=== PATIENT | female | born 1995 | race Caucasian/White ===

== ENCOUNTER → 2016-09-10 | Outpatient (REF) | payer OTHER ==
[~2016-09-10] MED LIST: PRIL40CA PO; RISP0.5T3 PO; TRAZ50TA2 PO; VALA1TAB PO; VALT1TAB PO; ZOLO50TA PO
== END ==
LOC: M LAB REF 12:15
PROVIDERS: ATTEND Advanced Practice Midwife
DX: R30.0 Dysuria (principal)

== ENCOUNTER → 2016-10-07 | Outpatient (CLI) | payer OTHER ==
[2016-10-07 13:25] LABS: BASO % 0.1 % (0.0-1.0); EOS % 0.4 % (0.0-3.0); LARGE UNSTAINED CELL # 0.1 K/mm3 (0.0-0.4); LARGE UNSTAINED CELL % 1.3 % (0.0-4.0); LYMPH # 1.5 K/mm3 (1.5-6.5); LYMPH % 13.3 % (24.0-44.0); MEAN CORPUSCULAR HEMOGLOBIN 32.3 pg (27.0-33.0); MONO # 0.4 K/mm3 (0.0-0.8); MONO % 3.7 % (0.0-5.0); NEUTROPHILS # 8.2 K/mm3 (1.8-7.7); NEUTROPHILS % 81.2 % (36.0-66.0); PLATELET COUNT, AUTOMATED 148 k/mm3 (150-450); RED CELL DISTRIBUTION WIDTH 13.2 % (11.5-14.5); WHITE BLOOD COUNT 10.1 K/mm3 (4.0-10.0)
== END ==
LOC: M SMT 10:06
PROVIDERS: ATTEND Advanced Practice Midwife
DX: Z34.83 Encounter for supervision of other normal pregnancy, third trimester (principal)

== ENCOUNTER → 2016-12-09 | Outpatient (REF) | payer OTHER | LOC: M LAB REF 17:23 | PROVIDERS: ATTEND Obstetrics & Gynecology | DX: Z34.83 Encounter for supervision of other normal pregnancy, third trimester (principal) ==

== ENCOUNTER → 2016-12-09 | Outpatient (CLI) | payer OTHER ==
--- NOTE | 2016-12-09 17:48 | REP ---
OB ULTRASOUND: Real-time sonographic evaluation of the gravid uterus is performed. Comparison is made with prior study of 08/05/2016. There is a single living intrauterine gestation with estimated gestational age is 37 weeks 4 days based on the LMP with EDC 12/26/2016. Today's measurements indicate somewhat less than expected growth. BPD 79 mm = 31 weeks 5 days, less than 5th percentile. HC 306 mm = 34 weeks 0 days, less than 5th percentile. AC 326 mm = 36 weeks 4 days, 34th percentile. Femur length 69 mm = 35 weeks 2 days, 16th percentile. HC/AC ratio 0.94 within normal range. Estimated weight 2665 grams 21st percentile. Cervix is closed measures 3.2 cm in length. heart rate 144 beats per minute. Amniotic fluid appears within normal limits. BETZAIDA 14.6 within normal range of 7.4-24.1. SD ratio 2.32 within normal range of 1.6-2.6. RI 0.57 is slightly below normal range of 0.59 to 0.75. Choroid plexus is homogenous and unremarkable. The upper lip, four chamber heart, stomach, three vessel cord, kidneys, and bladder are visualized and are grossly unremarkable. head demonstrates a somewhat lemon shape with a slight indentation of the frontal bones. This has been associated with several anomalies but the sign itself is nonspecific. There are no anomalies on the anatomy screening ultrasound of 08/05/2016. position is vertex. Placenta is anterior and grade 1 with no previa or abruption. IMPRESSION: Somewhat less than expected growth as discussed in detail above, although the estimated weight is at the 21st percentile. Signed by Garth Chandler MD 12/09/2016 07:50 P
== END ==
LOC: M RAD 16:01
PROVIDERS: ATTEND Obstetrics & Gynecology
DX: Z36 Encounter for antenatal screening of mother (principal)

== ENCOUNTER 2016-12-18 22:25 | Inpatient (IN) | payer OTHER ==
[~2016-12-18] VITALS: Ht 154.9 cm; Wt 78.0 kg
[2016-12-18 22:39] VITALS: BP 135/75
[2016-12-18] MEDS ORDERED: LR 1,000 ML IV SCH (22:52)
[2016-12-18] MEDS ORDERED: LACTATED RINGER'S 1000 ML IV STA (22:52)
[2016-12-18] MEDS ORDERED: VALT500T PO (23:09)
[2016-12-18] MEDS ORDERED: PRENTAB9 PO (23:09)
[2016-12-18] MEDS ORDERED: ZOLO50TA PO (23:09)
[2016-12-18] MEDS ORDERED: ACET50TA PO (23:09)
[2016-12-18 23:59] LABS: MEAN CORPUSCULAR HEMOGLOBIN 34.3 pg (27.0-33.0); MEAN CORPUSCULAR HGB CONC 35.9 g/dl (32.0-36.5); MEAN CORPUSCULAR VOLUME 95.4 fl (80.0-96.0); RED CELL DISTRIBUTION WIDTH 13.6 % (11.5-14.5); WHITE BLOOD COUNT 12.7 K/mm3 (4.0-10.0)
[2016-12-19] VITALS (42 sets, daily range): BP systolic 108–168; BP diastolic 56–83
[2016-12-19] MEDS ORDERED: FENTANYL 2MCG/ML ROPIVACAINE 0.2% IN 0.9% NACL 200ML IVBAG As Ordered ONE (00:27)
[2016-12-19] MEDS ORDERED: NALOXONE INJ 0.4 MG/1 ML VIAL (J2310) IV PRN (01:15)
[2016-12-19] MEDS ORDERED: ePHEDrine SULFATE 25 MG/5 ML(5MG/ML) SYRINGE IV PRN (01:15)
[2016-12-19] MEDS ORDERED: LACTATED RINGER'S 1000 ML IV PRN (01:15)
[2016-12-19] MEDS ORDERED: REFRIGERATOR IV KEYS XX PRN (01:15)
[2016-12-19] MEDS ORDERED: EPIDURAL COMMENT XX SCH (01:15)
[2016-12-19] MEDS ORDERED: ONDANSETRON 4MG/2ML VIAL (J2405) IV PRN (01:15)
[2016-12-19] MEDS ORDERED: diphenhydrAMINE INJ 50MG/ML VIAL (J1200) IV PRN (01:15)
[2016-12-19] MEDS ORDERED: EPIDURAL/PCA KEYS XX PRN (01:15)
[2016-12-19] MEDS ORDERED: FENTANYL/ROPIVACAINE/NACL BAG 200 ML EPIDURAL SCH (01:15)
[2016-12-19] MEDS ORDERED: OXYTOCIN 30 UNITS IN 0.9% NaCl 500ML IV BAG (J2590) As Ordered ONE (04:30)
[2016-12-19] MEDS ORDERED: OXYTOCIN DRIP 30 UNITS in APPROPRIATE DILUENT 1 EA IV SCH (05:20)
[2016-12-19 05:27] LABS: CORD GAS ABE V -3.4; CORD GAS HCO3 A 26.4 MEQ/L; CORD GAS HCO3 V 23.7 MEQ/L; CORD GAS O2 SAT A 26.4 %; CORD GAS O2 SAT V 53.6 %; CORD GAS PCO2 A 59.6 mmHg; CORD GAS PCO2 V 49.6 mmHg; CORD GAS PH A 7.265 UNITS; CORD GAS PH V 7.297 UNITS; CORD GAS PO2 A 13.2 mmHg; CORD GAS PO2 V 22.8 mmHg; CORD GAS SBC V 20.5 MEQ/L; CORD GAS TCO2 A 28.3 MEQ/L; CORD GAS TCO2 V 25.2 MEQ/L
[2016-12-19] MEDS ORDERED: ANUSOL HC CREAM 30GM TOP PRN (05:30)
[2016-12-19] MEDS ORDERED: RHOGAM 300 MCG (1500 IU) INJ (J2790) IM SCH (05:30)
[2016-12-19] MEDS ORDERED: METHYLERGONOVINE MALEATE 0.2 MG TAB PO PRN (05:30)
[2016-12-19] MEDS ORDERED: MEASLES,MUMPS,RUBELLA VACCINE INJ (MMR-II) (90707) SC SCH (05:30)
[2016-12-19] MEDS ORDERED: DOCUSATE SODIUM 100 MG CAP PO PRN (05:30)
[2016-12-19] MEDS: PRENATAL VITAMINS CHEWABLE TABLET PO SCH (08:59)
[2016-12-19] MEDS: IBUPROFEN 800 MG TAB PO PRN ×2 (09:00→22:29)
[2016-12-19] MEDS: ACETAMINOPHEN 500 MG TAB PO PRN (14:10)
--- NOTE | 2016-12-19 15:28 | DN ---
DATE: 12/19/2016 Sabina is a 21-year-old female, 1, para 0, who is admitted at 39 weeks gestation in labor. She progressed to fully dilated and had spontaneous rupture of membrane with thick meconium. She then pushed and delivered a live male infant in left occiput anterior position. scores 8 and 9. weight 5 pounds 11 ounces. Placenta delivered spontaneously intact. A 3-vessel cord. The perineum, vagina, and cervix inspected. Bilateral periurethral laceration noted, which was repaired using #3-0 chromic. Estimated blood loss 350 mL. The baby was cared for by our manual machinist, Dr. Lobo. Both baby and mother were in stable condition.
--- NOTE | 2016-12-19 22:39 | HPE ---
DATE OF ADMISSION: 12/18/2016 Sabina is a 25-year-old female 1, para 0 with an estimated date of confinement (EDC) of 12/26/2016, estimated gestational age (EGA) 39+ weeks gestation, who presented to labor and delivery with complaints of contractions. On evaluation, she was found to be 4 cm dilated, 90% effaced, fetus at zero station. At this point, a decision was made for admission. Her record reviewed. Blood type is O positive. Rubella immune. Hepatitis negative, HIV negative, GC, chlamydia negative, 1-hour sugar testing was within normal limits. Her GBS is negative. MEDICAL HISTORY: Significant for history of herpes. The patient denies any outbreak during the , has been on suppressive therapy since 36 weeks gestation. The patient also has a history of depression and anxiety. PAST SURGICAL HISTORY: Significant for an appendectomy and cholecystectomy. SOCIAL HISTORY: The patient is a smoker, smokes approximately half a pack of cigarettes per day. She denies any alcohol or drug use. REVIEW OF SYSTEMS: Unremarkable. FAMILY HISTORY: Mother and father with a history of hypertension and diabetes and heart disease. PHYSICAL EXAMINATION: Upon admission: HEENT: Grossly within normal limits. Abdomen: Soft, nontender, nondistended. Extremities: No clubbing, cyanosis or edema. Vaginal exam is 4 cm, 90%, fetus at zero station. ASSESSMENT: 1. Intrauterine at 39+ weeks gestation in labor. 2. Group B Streptococcus (GBS) negative. PLAN: Admit to labor and delivery. Routine labs sent. Pain management discussed. The patient up for an epidural. Will continue to monitor. Anticipate delivery. [facility]
[2016-12-20] MEDS: IBUPROFEN 800 MG TAB PO PRN ×2 (04:40→17:27)
[2016-12-20 06:08] VITALS: BP 125/66
[2016-12-20] MEDS: PRENATAL VITAMINS CHEWABLE TABLET PO SCH (07:53)
[2016-12-20] MEDS: ACETAMINOPHEN 500 MG TAB PO PRN (11:07)
[2016-12-20 18:00] VITALS: BP 119/63
[2016-12-21] MEDS: IBUPROFEN 800 MG TAB PO PRN (02:00)
[2016-12-21 05:45] VITALS: BP 111/58
[2016-12-21] MEDS: PRENATAL VITAMINS CHEWABLE TABLET PO SCH (08:18)
[2016-12-21] MEDS ORDERED: IBUP-1114 PO (08:50)
== END 2016-12-21 09:40 | disposition home or self-care (01) | DRG 560 ==
LOC: M LDO 22:25 → M LDI 22:52 → M OBS 12-19 09:25
PROVIDERS: ADMIT Obstetrics & Gynecology; ATTEND Obstetrics & Gynecology
PROC: 10E0XZZ Delivery of Products of Conception, External Approach (ICD-10-PCS; principal; 2016-12-19)
PROC: 0UQMXZZ Repair Vulva, External Approach (ICD-10-PCS; 2016-12-19)
DX: O98.52 Other viral diseases complicating childbirth (principal); B00.9 Herpesviral infection, unspecified; Z90.49 Acquired absence of other specified parts of digestive tract; O99.334 Smoking (tobacco) complicating childbirth; F17.210 Nicotine dependence, cigarettes, uncomplicated; Z83.3 Family history of diabetes mellitus; Z82.49 Family history of ischemic heart disease and other diseases of the circulatory system; Z37.0 Single live birth; Z3A.39 39 weeks gestation of pregnancy; O77.0 Labor and delivery complicated by meconium in amniotic fluid; O71.82 Other specified trauma to perineum and vulva; Z79.899 Other long term (current) drug therapy

== ENCOUNTER → 2017-01-28 | Outpatient (CLI) | payer OTHER ==
[~2017-01-28] MED LIST changes: +ACET50TA PO; +IBUP-1114 PO; +ONETAB35 PO; +PRENTAB9 PO; +VALT500T PO; +VITA100066 PO
[2017-01-28 19:09] LABS: THYROXINE (T4) 6.2 UG/DL (4.5-12.0)
== END ==
LOC: M SMT 14:51
PROVIDERS: ATTEND Advanced Practice Midwife
DX: F43.23 Adjustment disorder with mixed anxiety and depressed mood (principal)

== ENCOUNTER → 2017-02-10 | Outpatient (REF) | payer OTHER | LOC: M LAB REF 13:46 | PROVIDERS: ATTEND Advanced Practice Midwife | DX: Z11.3 Encounter for screening for infections with a predominantly sexual mode of transmission (principal) ==

== ENCOUNTER 2017-02-28 20:13 | Emergency (ER) | payer OTHER ==
[~2017-02-28] VITALS: Ht 154.9 cm; Wt 56.8 kg
[~2017-02-28 20:13] MED LIST changes: -ONETAB35 PO; -VITA100066 PO
[2017-02-28] MEDS ORDERED: ONETAB35 PO (20:25)
[2017-02-28] MEDS ORDERED: VITA100066 PO (20:25)
[2017-02-28] MEDS ORDERED: KETOROLAC TROMETHAMINE 10 MG TAB PO ONE (22:30)
[2017-02-28 22:40] LABS: MEAN CORPUSCULAR HEMOGLOBIN 32.7 pg (27.0-33.0); MEAN CORPUSCULAR HGB CONC 34.4 g/dl (32.0-36.5); MEAN CORPUSCULAR VOLUME 95.1 fl (80.0-96.0); RED CELL DISTRIBUTION WIDTH 13.3 % (11.5-14.5); WHITE BLOOD COUNT 8.1 K/mm3 (4.0-10.0)
[2017-02-28 23:01] LABS: ANION GAP 8 MEQ/L (8-16); BLOOD UREA NITROGEN 9 MG/DL (7-18); CALCIUM LEVEL 8.2 MG/DL (8.5-10.1); CARBON DIOXIDE LEVEL 26 MEQ/L (21-32); CHLORIDE LEVEL 110 MEQ/L (98-107); GLOMERULAR FILTRATION RATE > 60.0 (>60); GLUCOSE, FASTING 81 MG/DL (70-105); SODIUM LEVEL 144 MEQ/L (136-145)
--- NOTE | 2017-02-28 23:50 | REPUSA ---
CT of the cervical spine Clinical history: Pain. Fall. Technique: Multiple axial CT images were obtained through the cervical spine without administration o f contrast. Coronal and sagittal 3-D reconstructed images were also obtained. Comparison: None. Findings: The cervical vertebral bodies are in satisfactory positioning and alignment. No fractures or dislocat ions are demonstrated. The odontoid process is intact. Intervertebral disc spaces are well-maintained . There is no evidence of facet subluxation. The neural foramen appear grossly patent. The cervical c ranial junction is intact. The cervical spinal canal demonstrates normal caliber and contour without evidence of spinal stenosis. The surrounding soft tissues are within normal limits. Impression: Unremarkable CT examination of the cervical spine.
--- NOTE | 2017-03-01 | REPUSA ---
CT of the head Clinical history: fall. Comparison: 01/24/2015. Technique: Multiple axial CT images were obtained through the head without administration of contrast . Findings: The ventricles and sulci are symmetric bilaterally. There is no evidence of acute hemorrhag e or infarct. There is no midline shift, mass effect, or extra-axial fluid collection. The osseous st ructures are unremarkable. The visualized paranasal sinuses and mastoid air cells are clear. Impression: Negative study.
[2017-03-01 00:32] VITALS: BP 116/59
== END 2017-03-01 00:33 | disposition home or self-care (01) ==
LOC: M ED 20:13
DX: S06.0X0A Concussion without loss of consciousness, initial encounter (principal); S16.1XXA Strain of muscle, fascia and tendon at neck level, initial encounter; W01.198A Fall on same level from slipping, tripping and stumbling with subsequent striking against other object, initial encounter; Y92.099 Unspecified place in other non-institutional residence as the place of occurrence of the external cause; Y93.89 Activity, other specified; Y99.9 Unspecified external cause status

== ENCOUNTER → 2017-03-17 | Outpatient (REF) | payer OTHER ==
[~2017-03-17] MED LIST changes: +ONETAB35 PO; +VITA100066 PO
== END ==
LOC: M LAB REF 13:15
PROVIDERS: ATTEND Advanced Practice Midwife
DX: Z12.4 Encounter for screening for malignant neoplasm of cervix (principal); Z11.3 Encounter for screening for infections with a predominantly sexual mode of transmission

== ENCOUNTER 2017-03-31 12:30 | Emergency (ER) | payer OTHER ==
[~2017-03-31] VITALS: Ht 154.9 cm; Wt 58.2 kg
[2017-03-31 12:45] VITALS: BP 129/61
== END 2017-03-31 15:57 | disposition left against medical advice (07) ==
LOC: M ED 12:30
DX: M54.9 Dorsalgia, unspecified (principal); Z53.29 Procedure and treatment not carried out because of patient's decision for other reasons

== ENCOUNTER → 2017-06-01 | Outpatient (REF) | payer OTHER | LOC: M LAB REF 13:27 | PROVIDERS: ATTEND Advanced Practice Midwife | DX: N94.12 Deep dyspareunia (principal) ==

== ENCOUNTER → 2017-06-07 | Outpatient (REF) | payer OTHER ==
[2017-06-07 12:08] LABS: MEAN CORPUSCULAR HGB CONC 34.1 g/dl (32.0-36.5); PLATELET COUNT, AUTOMATED 200 10^3/uL (150-450); WHITE BLOOD COUNT 8.6 10^3/uL (4.0-10.0)
[2017-06-07 12:48] LABS: ALBUMIN 4.1 GM/DL (3.2-5.2); ALBUMIN/GLOBULIN RATIO 1.41 (1.00-1.93); ALKALINE PHOSPHATASE 59 U/L (45-117); ALT/SGPT 17 U/L (12-78); ANION GAP 8 MEQ/L (8-16); AST/SGOT 5 U/L (7-37); BILIRUBIN,TOTAL 0.4 MG/DL (0.2-1.0); BLOOD UREA NITROGEN 8 MG/DL (7-18); CALCIUM LEVEL 8.5 MG/DL (8.5-10.1); CARBON DIOXIDE LEVEL 27 MEQ/L (21-32); CHLORIDE LEVEL 107 MEQ/L (98-107); CHOLESTEROL LEVEL 194 MG/DL (<200); CREATININE FOR GFR 0.73 MG/DL (0.55-1.02); ERYTHROCYTE SEDIMENTATION RATE 6 mm/hr (0-20); FREE T4 1.16 NG/DL (0.76-1.46); GLOMERULAR FILTRATION RATE > 60.0 (>60); GLUCOSE, FASTING 89 MG/DL (70-105); POTASSIUM SERUM 3.9 MEQ/L (3.5-5.1); SODIUM LEVEL 142 MEQ/L (136-145); TRIGLYCERIDES LEVEL 90 MG/DL (<150)
== END ==
LOC: M SFHCCLAY 08:44
PROVIDERS: ATTEND Family Medicine
DX: Z00.00 Encounter for general adult medical examination without abnormal findings (principal); M25.50 Pain in unspecified joint

== ENCOUNTER → 2017-06-07 | Outpatient (CLI) | payer OTHER ==
--- NOTE | 2017-06-07 14:30 | REP ---
PELVIC ULTRASOUND: Real-time sonographic evaluation of the pelvis performed utilizing transabdominal and endovaginal technique. Urinary bladder measures 2.9 x 5.6 x 5.7 cm. Uterus measures 8.9 x 2.8 x 4.8 cm. Endometrial thickness is approximately 3 mm in the AP dimension with no endometrial fluid collection. An IUD is seen within the endometrial canal. Ovaries are normal are normal in size and echotexture, right ovary measuring 2.8 x 2.5 x 2.6 cm and left ovary 2.1 x 2.5 x 2.6 cm. A small amount of free fluid is seen in the cul-de-sac. There is blood flow seen in each ovary with duplex Doppler evaluation, with no torsion. IMPRESSION: IUD in the endometrial canal. Normal appearing ovaries. Mild free fluid in the cul-de-sac. Signed by Garth Chandler MD 06/09/2017 08:57 A
== END ==
LOC: M SMT 13:00
PROVIDERS: ATTEND Advanced Practice Midwife
DX: N94.12 Deep dyspareunia (principal)

== ENCOUNTER 2017-06-15 08:28 | Outpatient (RCR) | payer OTHER | END 2017-06-27 | LOC: M PT 08:28 | DX: Z51.89 Encounter for other specified aftercare (principal); M25.50 Pain in unspecified joint | CPT/HCPCS: 97010 ==

== ENCOUNTER 2017-06-29 09:44 | Outpatient (RCR) | payer OTHER | END 2017-07-28 | LOC: M PT 09:44 | DX: Z51.89 Encounter for other specified aftercare (principal); M25.50 Pain in unspecified joint | CPT/HCPCS: 97010 ==

== ENCOUNTER → 2017-09-03 | Outpatient (REF) | payer OTHER ==
[2017-09-03 16:51] LABS: ERYTHROCYTE SEDIMENTATION RATE 9 mm/hr (0-20)
[2017-09-03 16:53] LABS: RHEUMATOID FACTOR QUANT < 10.0 IU/ML (0-15.0)
[2017-09-07 00:06] LABS: ANTINUCLEAR ANTIBODIES DIRECT Negative (Negative); Lyme Disease IgG/IgM Antibodie <0.91 ISR (0.00-0.90); Lyme Disease IgM Ab Quantitati <0.80 index (0.00-0.79)
== END ==
LOC: M SFHCCLAY 10:14
DX: F17.200 Nicotine dependence, unspecified, uncomplicated (principal); M25.50 Pain in unspecified joint

== ENCOUNTER 2018-01-16 09:19 | Emergency (ER) | payer MEDICAID, OTHER, SELFPAY ==
[2018-01-16] MEDS: NAPROXEN 250 MG TAB PO (09:38)
== END 2018-01-16 09:49 | disposition home or self-care (01) ==
LOC: M ED 09:19
DX: S90.31XA Contusion of right foot, initial encounter (principal); W22.8XXA Striking against or struck by other objects, initial encounter; Y92.018 Other place in single-family (private) house as the place of occurrence of the external cause; Z88.6 Allergy status to analgesic agent; F17.210 Nicotine dependence, cigarettes, uncomplicated
CPT/HCPCS: 73630

== ENCOUNTER → 2018-02-01 | Outpatient (CLI) | payer OTHER ==
[2018-02-01 14:28] LABS: BASO % 0.6 % (0.0-1.0); EOS % 0.7 % (0.0-3.0); HEMATOCRIT 37.6 % (36.0-47.0); IMMATURE GRANULOCYTE % 0.4 % (0-3.0); LYMPH # 1.4 10^3/uL (1.5-6.5); LYMPH % 26.1 % (24.0-44.0); MEAN CORPUSCULAR HGB CONC 34.6 g/dl (32.0-36.5); MEAN CORPUSCULAR VOLUME 92.6 fl (80.0-96.0); MONO # 0.3 10^3/uL (0.0-0.8); MONO % 5.1 % (0.0-5.0); NEUTROPHILS # 3.7 10^3/uL (1.8-7.7); NEUTROPHILS % 67.1 % (36.0-66.0); PLATELET COUNT, AUTOMATED 175 10^3/uL (150-450); RED BLOOD COUNT 4.06 10^6/uL (4.00-5.40); RED CELL DISTRIBUTION WIDTH 12.5 % (11.5-14.5); WHITE BLOOD COUNT 5.5 10^3/uL (4.0-10.0)
[2018-02-01 14:55] LABS: ALBUMIN 3.7 GM/DL (3.2-5.2); ALBUMIN/GLOBULIN RATIO 1.23 (1.00-1.93); ALKALINE PHOSPHATASE 50 U/L (45-117); ALT/SGPT 14 U/L (12-78); ANION GAP 8 MEQ/L (8-16); AST/SGOT 5 U/L (7-37); BILIRUBIN,TOTAL 0.4 MG/DL (0.2-1.0); BLOOD UREA NITROGEN 6 MG/DL (7-18); CALCIUM LEVEL 8.1 MG/DL (8.5-10.1); CARBON DIOXIDE LEVEL 26 MEQ/L (21-32); CHLORIDE LEVEL 106 MEQ/L (98-107); CREATININE FOR GFR 0.71 MG/DL (0.55-1.30); GLOMERULAR FILTRATION RATE > 60.0 (>60); GLUCOSE, FASTING 78 MG/DL (70-100); POTASSIUM SERUM 4.4 MEQ/L (3.5-5.1); SODIUM LEVEL 140 MEQ/L (136-145); THYROID STIMULATING HORMONE 0.544 uIU/ML (0.358-3.740); TOTAL PROTEIN 6.7 GM/DL (6.4-8.2)
[2018-02-01 21:04] LABS: TOTAL 25(OH) VITAMIN D 11.6 NG/ML (30.0-100.0)
[2018-02-01 21:05] LABS: VITAMIN B12 LEVEL 432 PG/ML (247-911)
== END ==
LOC: M WUC 13:03
DX: F31.81 Bipolar II disorder (principal)
CPT/HCPCS: 84443

== ENCOUNTER 2018-09-23 14:34 | Emergency (ER) | payer MEDICAID, OTHER ==
[~2018-09-23] VITALS: Ht 154.9 cm; Wt 63.6 kg
[~2018-09-23 14:34] MED LIST changes: -ACET50TA PO; +LAMI25TA PO; +MAPA500T2 PO
[2018-09-23 14:35] VITALS: BP 120/64
[2018-09-23] MEDS ORDERED: PROZ10CA7 PO (14:38)
[2018-09-23] MEDS ORDERED: TRAZ-160 PO (14:38)
[2018-09-23] MEDS ORDERED: LAMO100T80 PO (14:38)
--- NOTE | 2018-09-23 15:33 | REP ---
Clinical: Trauma. Technique: AP, lateral, bilateral oblique views left foot . Findings: The osseous structures and joint spaces are intact and normal. There is no evidence for acute fracture or dislocation. Surrounding soft tissues are unremarkable. No subcutaneous emphysema or radiodense foreign body. Impression: Age-appropriate left foot series . No acute fracture or dislocation. Electronically Signed by Boo Goins MD 09/23/2018 03:24 P
--- NOTE | 2018-09-23 15:33 | REP ---
Clinical: Trauma/fall with right shoulder pain . Technique: Internal rotation, external rotation, and Y view. Findings: No acute fracture or dislocation. The acromioclavicular and glenohumeral joints are intact. No periarticular calcifications or degenerative changes are appreciated. Sub acromial space is normal. Surrounding soft tissues are unremarkable. Impression: Normal right shoulder radiographs. Electronically Signed by Boo Goins MD 09/23/2018 03:24 P
== END 2018-09-23 16:05 | disposition home or self-care (01) ==
LOC: M ED 14:34
DX: S93.602A Unspecified sprain of left foot, initial encounter (principal); S40.011A Contusion of right shoulder, initial encounter; W01.0XXA Fall on same level from slipping, tripping and stumbling without subsequent striking against object, initial encounter; Y92.099 Unspecified place in other non-institutional residence as the place of occurrence of the external cause; Y93.89 Activity, other specified; Y99.9 Unspecified external cause status; Z97.5 Presence of (intrauterine) contraceptive device; Z72.0 Tobacco use; Z79.899 Other long term (current) drug therapy; Z88.8 Allergy status to other drugs, medicaments and biological substances

== ENCOUNTER → 2019-04-22 | Outpatient (CLI) | payer OTHER ==
[~2019-04-22] MED LIST changes: +LAMO100T80 PO; +PROZ10CA7 PO; +TRAZ-252 PO
--- NOTE | 2019-04-22 11:02 | REP ---
MRI RIGHT SHOULDER: TECHNIQUE: Axial T2 fat sat, coronal oblique T1, T2 fat sat, post arthrogram axial T1 fat sat, proton density, coronal oblique T1 fat sat, T2 sat, sagittal oblique T2 fat sat, ABER T1 fat sat. There is confluent high signal on T2 weighted images in the undersurface of the supraspinatus tendon anteriorly consistent with a partial tear. There may be small linear rents in the tendon extending through the entire thickness. Other rotator cuff tendons are intact. There is an adjacent oval cyst at the anterior margin of the tendon measuring 9 x 5 mm. There is mild adjacent subacromial fluid. There are not significant hypertrophic changes at the acromioclavicular joint. The acromion is type I. The biceps tendon is within the bicipital groove with mild surrounding fluid. There is no Hill-Sachs deformity. The deltoid muscle demonstrates no abnormal signal. Biceps labral complex is intact. I do not see evidence of a labral tear or paralabral cyst. Bone marrow signal is homogeneous and unremarkable with no bone marrow edema or occult fracture. Normal amount of fluid is seen in the glenohumeral joint. IMPRESSION: Partial tear undersurface anterior supraspinatus tendon with possibly a few linear vertical rents through the entire thickness of the tendon. Oval cyst at the anterior margin of the tendon measures 9 x 4 mm, at the region of the musculotendinous junction. Mild subacromial fluid. No labral tear. Electronically Signed by Garth Chandler MD 04/22/2019 04:56 P
== END ==
LOC: M RAD 09:26
PROVIDERS: ATTEND Orthopaedic Surgery Sports Medicine
DX: M75.41 Impingement syndrome of right shoulder (principal); S46.911A Strain of unspecified muscle, fascia and tendon at shoulder and upper arm level, right arm, initial encounter; X58.XXXA Exposure to other specified factors, initial encounter; Y92.9 Unspecified place or not applicable; M67.921 Unspecified disorder of synovium and tendon, right upper arm

== ENCOUNTER → 2020-09-10 | Outpatient (CLI) | payer OTHER ==
--- NOTE | 2020-09-10 13:59 | REP ---
INDICATION: M25.561, POSTERIOR RIGHT KNEE PAIN COMPARISON: None. TECHNIQUE: AP, lateral, bilateral oblique and sunrise views. FINDINGS: The osseous structures and joint spaces are intact and normal. There is no evidence for acute fracture or dislocation. No joint effusion is appreciated. Surrounding soft tissues are unremarkable. No subcutaneous emphysema or radiodense foreign body. IMPRESSION: Normal examination. No acute fracture or dislocation. <Electronically signed by Boo Goins > 09/10/20 [id number]
--- NOTE | 2020-09-10 14:15 | REP ---
INDICATION: M25.551, RIGHT HIP PAIN COMPARISON: None. TECHNIQUE: AP and frog-lateral views of the right hip FINDINGS: Osseous structures, joint spaces, and surrounding soft tissues are age-appropriate and normal. No evidence for acute injury. No evidence for congenital abnormality or degenerative changes. IMPRESSION: Age-appropriate right hip radiographs. <Electronically signed by Boo Goins > 09/10/20 [id number]
== END ==
LOC: M CLY 11:11
PROVIDERS: ATTEND Family Medicine
DX: M25.551 Pain in right hip (principal); M25.561 Pain in right knee

== ENCOUNTER → 2021-07-16 | Outpatient (CLI) | payer OTHER | LOC: M LAB 08:53 | PROVIDERS: ATTEND Orthopaedic Surgery | DX: Z20.828 Contact with and (suspected) exposure to other viral communicable diseases (principal); M75.111 Incomplete rotator cuff tear or rupture of right shoulder, not specified as traumatic ==

== ENCOUNTER → 2022-08-28 | Outpatient (CLI) | payer OTHER | LOC: M CLY 14:41 | PROVIDERS: ATTEND Nurse Practitioner Family | DX: M79.641 Pain in right hand (principal) ==

== ENCOUNTER → 2022-09-11 | Outpatient (REF) | payer OTHER ==
[2022-09-11 18:00] LABS: HEMATOCRIT 38.4 % (36.0-47.0); HEMOGLOBIN 12.9 g/dl (12.0-15.5); MEAN CORPUSCULAR HEMOGLOBIN 32.4 pg (27.0-33.0); MEAN CORPUSCULAR HGB CONC 33.6 g/dl (32.0-36.5); MEAN CORPUSCULAR VOLUME 96.5 fl (80.0-96.0); PLATELET COUNT, AUTOMATED 165 10^3/uL (150-450); RED BLOOD COUNT 3.98 10^6/uL (4.00-5.40)
[2022-09-11 18:27] LABS: C REACTIVE PROTEIN QUANTITATIV < 0.40 MG/DL (<1.0); ERYTHROCYTE SEDIMENTATION RATE 6 mm/hr (0-20)
[2022-09-14 23:07] LABS: ANA (HEP2) Positive (.); CYCLIC CITRULLINATED PEPTIDE 2 units (0-19)
== END ==
LOC: M SFHCCLAY 08:54
PROVIDERS: ATTEND Physician Assistant
DX: M79.641 Pain in right hand (principal)

== ENCOUNTER → 2023-07-30 | Outpatient (REF) | payer OTHER ==
[2023-07-30 18:21] LABS: BASO % 0.8 % (0.0-1.0); EOS % 0.8 % (0.0-3.0); HEMATOCRIT 37.5 % (36.0-47.0); LYMPH # 1.7 10^3/uL (1.5-5.0); LYMPH % 31.3 % (24.0-44.0); MEAN CORPUSCULAR HEMOGLOBIN 31.8 pg (27.0-33.0); MEAN CORPUSCULAR HGB CONC 34.7 g/dl (32.0-36.5); MEAN CORPUSCULAR VOLUME 91.7 fl (80.0-96.0); MONO # 0.3 10^3/uL (0.0-0.8); MONO % 5.5 % (2.0-8.0); NEUTROPHILS # 3.3 10^3/uL (1.5-8.5); NEUTROPHILS % 61.4 % (36.0-66.0); PLATELET COUNT, AUTOMATED 214 10^3/uL (150-450); RED BLOOD COUNT 4.09 10^6/uL (4.00-5.40); WHITE BLOOD COUNT 5.3 10^3/uL (4.0-10.0)
[2023-07-30 18:39] LABS: ALBUMIN 4.3 G/DL (3.2-5.2); ALKALINE PHOSPHATASE 53 U/L (46-116); ALT/SGPT < 9 U/L (7.0-40); AST/SGOT < 8 U/L (<34); BILIRUBIN,TOTAL 0.4 MG/DL (0.3-1.2); BLOOD UREA NITROGEN 5 MG/DL (9-23); CARBON DIOXIDE LEVEL 28 MMOL/L (20-31); CHLORIDE LEVEL 103 MMOL/L (98-107); CREATININE FOR GFR 0.61 MG/DL (0.55-1.30); GLOMERULAR FILTRATION RATE > 60.0 (>60); GLUCOSE, FASTING 89 MG/DL (60-100); MAGNESIUM LEVEL 2.2 MG/DL (1.8-2.4); POTASSIUM SERUM 4.4 MMOL/L (3.5-5.1); SODIUM LEVEL 137 MMOL/L (136-145); TOTAL PROTEIN 7.4 G/DL (5.7-8.2)
[2023-07-30 18:40] LABS: FREE T4 1.08 NG/DL (0.89-1.76); THYROID STIMULATING HORMONE 0.905 uIU/ML (0.55-4.78)
[2023-07-30 18:41] LABS: FOLATE 17.24 NG/ML (>5.4)
[2023-07-30 18:46] LABS: VITAMIN B12 LEVEL 449 PG/ML (211-911)
== END ==
LOC: M SFHCCLAY 11:31
PROVIDERS: ATTEND Nurse Practitioner Family
DX: Z00.00 Encounter for general adult medical examination without abnormal findings (principal); F41.9 Anxiety disorder, unspecified; F32.9 Major depressive disorder, single episode, unspecified; F17.200 Nicotine dependence, unspecified, uncomplicated; M79.671 Pain in right foot; Z78.9 Other specified health status

== ENCOUNTER → 2023-10-12 | Outpatient (CLI) | payer MEDICAID, OTHER ==
[2023-10-12 16:18] LABS: HEMATOCRIT 35.9 % (36.0-47.0); HEMOGLOBIN 12.5 g/dl (12.0-15.5); MEAN CORPUSCULAR HEMOGLOBIN 31.6 pg (27.0-33.0); MEAN CORPUSCULAR HGB CONC 34.8 g/dl (32.0-36.5); MEAN CORPUSCULAR VOLUME 90.9 fl (80.0-96.0); PLATELET COUNT, AUTOMATED 194 10^3/uL (150-450); RED BLOOD COUNT 3.95 10^6/uL (4.00-5.40); WHITE BLOOD COUNT 8.8 10^3/uL (4.0-10.0)
[2023-10-12 17:07] LABS: HIV 1&2 SCREEN NEGATIVE (NEGATIVE)
[2023-10-12 17:15] LABS: HEPATITIS C VIRUS ABY INDEX < 0.02 INDEX (<0.8)
[2023-10-12 17:46] LABS: GC DNA AMPLIFICATION NEGATIVE (NEGATIVE)
== END ==
LOC: M PLALAB 13:22
PROVIDERS: ATTEND Advanced Practice Midwife
DX: Z34.91 Encounter for supervision of normal pregnancy, unspecified, first trimester (principal)

== ENCOUNTER → 2023-11-08 | Outpatient (CLI) | payer OTHER | LOC: M PLALAB 09:04 | PROVIDERS: ATTEND Obstetrics & Gynecology | DX: Z36.89 Encounter for other specified antenatal screening (principal) ==

== ENCOUNTER → 2023-12-07 | Outpatient (CLI) | payer OTHER | LOC: M WHC 07:12 | PROVIDERS: ATTEND Obstetrics & Gynecology | DX: O44.42 Low lying placenta NOS or without hemorrhage, second trimester (principal); Z3A.19 19 weeks gestation of pregnancy ==

== ENCOUNTER → 2024-01-26 | Outpatient (CLI) | payer OTHER | LOC: M WHC 11:30 | PROVIDERS: ATTEND Obstetrics & Gynecology | DX: Z36.2 Encounter for other antenatal screening follow-up (principal); O32.1XX0 Maternal care for breech presentation, not applicable or unspecified; Z3A.26 26 weeks gestation of pregnancy ==

== ENCOUNTER → 2024-01-26 | Outpatient (CLI) | payer OTHER ==
[2024-01-26 15:06] LABS: HEMATOCRIT 34.8 % (36.0-47.0); HEMOGLOBIN 11.9 g/dl (12.0-15.5); MEAN CORPUSCULAR HEMOGLOBIN 32.1 pg (27.0-33.0); MEAN CORPUSCULAR HGB CONC 34.2 g/dl (32.0-36.5); MEAN CORPUSCULAR VOLUME 93.8 fl (80.0-96.0); PLATELET COUNT, AUTOMATED 146 10^3/uL (150-450); RED BLOOD COUNT 3.71 10^6/uL (4.00-5.40); WHITE BLOOD COUNT 10.2 10^3/uL (4.0-10.0)
[2024-01-26 17:20] LABS: GC DNA AMPLIFICATION NEGATIVE (NEGATIVE)
[2024-01-26 17:35] LABS: GLUCOSE CHALLENGE TEST 1 HOUR 86 MG/DL (LESS THAN 140)
[2024-01-26 18:05] LABS: HIV 1&2 SCREEN NEGATIVE (NEGATIVE)
[2024-01-26 18:13] LABS: HEPATITIS C VIRUS ABY INDEX < 0.02 INDEX (<0.8)
== END ==
LOC: M PLALAB 11:29
PROVIDERS: ATTEND Obstetrics & Gynecology
DX: Z34.92 Encounter for supervision of normal pregnancy, unspecified, second trimester (principal)

== ENCOUNTER 2024-02-29 14:53 | Outpatient (CLI) | payer OTHER, MEDICAID ==
[~2024-02-29] VITALS: Ht 152.4 cm; Wt 69.6 kg
[2024-02-29] MEDS ORDERED: PEPC1TAB5 PO (15:15)
[2024-02-29] MEDS ORDERED: ZOLO25TA PO (15:15)
[2024-02-29] MEDS ORDERED: ACET325C5 PO (15:17)
[2024-02-29] MEDS ORDERED: TUMSCHW16 PO (15:17)
[2024-02-29] MEDS ORDERED: HOME MED LIST COMPLETE! XX SCH (15:20)
[2024-02-29 15:22] VITALS: BP 104/50; O2SAT 98
[2024-02-29 16:25] LABS: HEMATOCRIT 30.3 % (36.0-47.0); HEMOGLOBIN 10.7 g/dl (12.0-15.5); MEAN CORPUSCULAR HEMOGLOBIN 32.7 pg (27.0-33.0); MEAN CORPUSCULAR HGB CONC 35.3 g/dl (32.0-36.5); MEAN CORPUSCULAR VOLUME 92.7 fl (80.0-96.0); PLATELET COUNT, AUTOMATED 131 10^3/uL (150-450); RED BLOOD COUNT 3.27 10^6/uL (4.00-5.40); WHITE BLOOD COUNT 9.6 10^3/uL (4.0-10.0)
[2024-02-29 16:41] LABS: INR 0.98; PROTHROMBIN TIME 12.7 SECONDS (12.5-14.5)
[2024-02-29 16:52] VITALS: BP 97/48
[2024-02-29 18:55] VITALS: BP 116/57; O2SAT 99
== END 2024-02-29 19:00 | disposition home or self-care (01) ==
LOC: M LDO 14:53
PROVIDERS: ATTEND Obstetrics & Gynecology
DX: O36.8130 Decreased fetal movements, third trimester, not applicable or unspecified (principal); O99.343 Other mental disorders complicating pregnancy, third trimester; O98.513 Other viral diseases complicating pregnancy, third trimester; O99.113 Other diseases of the blood and blood-forming organs and certain disorders involving the immune mechanism complicating pregnancy, third trimester; O99.333 Smoking (tobacco) complicating pregnancy, third trimester; F31.9 Bipolar disorder, unspecified; F41.9 Anxiety disorder, unspecified; B00.9 Herpesviral infection, unspecified; D69.6 Thrombocytopenia, unspecified; F17.290 Nicotine dependence, other tobacco product, uncomplicated; Z3A.31 31 weeks gestation of pregnancy
CPT/HCPCS: 36415; 59025; 85027; 85384; 85610; 85730; G0463

== ENCOUNTER → 2024-03-28 | Outpatient (CLI) | payer OTHER ==
[~2024-03-28] MED LIST changes: +ACET325C5 PO; +PEPC1TAB5 PO; +TUMSCHW16 PO; +ZOLO25TA PO
[2024-03-28 11:01] LABS: HEMATOCRIT 35.6 % (36.0-47.0); MEAN CORPUSCULAR HEMOGLOBIN 31.7 pg (27.0-33.0); MEAN CORPUSCULAR HGB CONC 33.7 g/dl (32.0-36.5); MEAN CORPUSCULAR VOLUME 94.2 fl (80.0-96.0); PLATELET COUNT, AUTOMATED 132 10^3/uL (150-450); RED BLOOD COUNT 3.78 10^6/uL (4.00-5.40)
== END ==
LOC: M PLALAB 08:19
PROVIDERS: ATTEND Obstetrics & Gynecology
DX: O99.119 Other diseases of the blood and blood-forming organs and certain disorders involving the immune mechanism complicating pregnancy, unspecified trimester (principal); Z3A.00 Weeks of gestation of pregnancy not specified

== ENCOUNTER → 2024-04-05 | Outpatient (REF) | payer OTHER | LOC: M LAB REF 12:31 | PROVIDERS: ATTEND Obstetrics & Gynecology | DX: O98.319 Other infections with a predominantly sexual mode of transmission complicating pregnancy, unspecified trimester (principal) ==

== ENCOUNTER 2024-04-26 14:01 | Inpatient (IN) | payer OTHER ==
[2024-04-26] VITALS (37 sets, daily range): BP systolic 102–148; BP diastolic 55–83; O2SAT 100
[~2024-04-26] VITALS: Ht 152.4 cm; Wt 70.4 kg
[2024-04-26] MEDS ORDERED: VALT500T PO (14:30)
[2024-04-26] MEDS ORDERED: HOME MED LIST COMPLETE! XX SCH (14:35)
[2024-04-26] MEDS ORDERED: OXYTOCIN DRIP 30 UNITS in IV 1 EA IV PRN (14:40)
[2024-04-26] MEDS ORDERED: TRANEXAMIC ACID INJection 1,000 MG in NS 100 ML IV PRN (14:40)
[2024-04-26] MEDS ORDERED: METHYLERGONOVINE MALEATE 0.2MG/ML 1ML VIAL IM PRN (14:40)
[2024-04-26] MEDS ORDERED: CARBOPROST TROMETHAMINE 250 MCG/ML AMP IM PRN (14:40)
[2024-04-26] MEDS ORDERED: OXYTOCIN INJ 10UNITS/ML 1ML VIAL IM PRN (14:40)
[2024-04-26] MEDS: LACTATED RINGER'S 1000 ML IV STA (14:48)
[2024-04-26 15:02] LABS: HEMOGLOBIN 14.3 g/dl (12.0-15.5); MEAN CORPUSCULAR HEMOGLOBIN 32.5 pg (27.0-33.0); MEAN CORPUSCULAR HGB CONC 35.8 g/dl (32.0-36.5); MEAN CORPUSCULAR VOLUME 90.9 fl (80.0-96.0); PLATELET COUNT, AUTOMATED 141 10^3/uL (150-450); WHITE BLOOD COUNT 13.7 10^3/uL (4.0-10.0)
[2024-04-26] MEDS ORDERED: diphenhydrAMINE 50MG/ML VIAL IV PRN (15:25)
[2024-04-26] MEDS ORDERED: NALOXONE INJ 0.4MG/1ML VIAL IV PRN (15:25)
[2024-04-26] MEDS ORDERED: EPIDURAL/PCA KEYS XX PRN (15:25)
[2024-04-26] MEDS ORDERED: ONDANSETRON 4MG 2ML VIAL IV PRN (15:25)
[2024-04-26] MEDS: FENTANYL/ROPIVACAINE/NACL BAG 100 ML EPIDURAL SCH (15:34)
[2024-04-26] MEDS: OXYTOCIN DRIP 30 UNITS in IV 1 EA IV SCH (16:46)
[2024-04-26] MEDS: LR 500 ML IV PRN (17:11)
[2024-04-26] MEDS: ePHEDrine SULFATE 25 MG/5 ML(5MG/ML) SYRINGE IVP PRN (17:11)
[2024-04-26] MEDS: LR 1,000 ML IV SCH (17:45)
[2024-04-26 19:49] LABS: CORD GAS ABE V -3.9; CORD GAS HCO3 V 23.7 MMOL/L; CORD GAS O2 SAT V 44.6 %; CORD GAS PCO2 V 51.5 mmHg; CORD GAS PH V 7.28 UNITS; CORD GAS PO2 V 18.1 mmHg; CORD GAS SBC V 19.9 MMOL/L; CORD GAS TCO2 V 25.2 MMOL/L
[2024-04-26 19:52] LABS: CORD GAS ABE A -8.5; CORD GAS HCO3 A 20.7 MMOL/L; CORD GAS O2 SAT A 65.2 %; CORD GAS PCO2 A 56.3 mmHg; CORD GAS PH A 7.184 UNITS; CORD GAS PO2 A 28.5 mmHg; CORD GAS SBC A 17.1 MMOL/L; CORD GAS TCO2 A 22.5 MMOL/L
[2024-04-26] MEDS ORDERED: ACETAMINOPHEN 325 MG TAB PO PRN (19:55)
[2024-04-26] MEDS ORDERED: IBUPROFEN 600MG TAB PO PRN (19:55)
[2024-04-26] MEDS ORDERED: RHOGAM 300MCG (1500IU) INJ IM SCH (19:55)
[2024-04-26] MEDS: ACETAMINOPHEN 500 MG TAB PO PRN (23:03)
[2024-04-27 06:02] VITALS: BP 114/58; O2SAT 100
[2024-04-27] MEDS: DOCUSATE SODIUM 100MG CAPSULE PO PRN (08:45)
[2024-04-27] MEDS: PRENATAL VITAMINS CHEWABLE TABLET PO SCH (08:45)
[2024-04-27] MEDS: IBUPROFEN 800 MG TAB PO PRN (08:45)
[2024-04-27 18:00] VITALS: BP 128/61; O2SAT 100
[2024-04-27 19:07] LABS: HEPATITIS C VIRUS ABY INDEX < 0.02 INDEX (<0.8)
[2024-04-28 05:38] VITALS: BP 111/63; O2SAT 100
[2024-04-28] MEDS ORDERED: IBUP80TA PO (06:40)
[2024-04-28] MEDS ORDERED: ACET-683 PO (06:40)
[2024-04-28] MEDS: MEASLES,MUMPS,RUBELLA VACCINE INJ (MMR-II) SC.IMMUN ONE (09:00)
== END 2024-04-28 11:39 | disposition home or self-care (01) | DRG 560 ==
LOC: M LDO 14:01 → M LDI 14:37 → M OBS 22:19
PROVIDERS: ADMIT Advanced Practice Midwife; ATTEND Advanced Practice Midwife
PROC: 10E0XZZ Delivery of Products of Conception, External Approach (ICD-10-PCS; principal; 2024-04-26)
DX: O99.12 Other diseases of the blood and blood-forming organs and certain disorders involving the immune mechanism complicating childbirth (principal); D69.6 Thrombocytopenia, unspecified; O99.344 Other mental disorders complicating childbirth; Z37.0 Single live birth; Z3A.39 39 weeks gestation of pregnancy; F41.9 Anxiety disorder, unspecified; F32.A Depression, unspecified; B00.9 Herpesviral infection, unspecified; O98.52 Other viral diseases complicating childbirth; Z96.611 Presence of right artificial shoulder joint; Z79.899 Other long term (current) drug therapy; O69.82X0 Labor and delivery complicated by other cord entanglement, without compression, not applicable or unspecified

== ENCOUNTER → 2024-05-24 | Outpatient (REF) | payer OTHER ==
[~2024-05-24] MED LIST changes: +ACET-683 PO; +IBUP80TA PO
== END ==
LOC: M PLALAB 11:51
PROVIDERS: ATTEND Nurse Practitioner Family
DX: N94.89 Other specified conditions associated with female genital organs and menstrual cycle (principal); Z53.9 Procedure and treatment not carried out, unspecified reason

== ENCOUNTER → 2024-08-15 | Outpatient (REF) | payer OTHER ==
[2024-08-15 17:44] LABS: BASO % 0.5 % (0.0-1.0); EOS # 0.1 10^3/uL (0.0-0.5); HEMATOCRIT 37.3 % (36.0-47.0); HEMOGLOBIN 12.5 g/dl (12.0-15.5); MEAN CORPUSCULAR HEMOGLOBIN 30.9 pg (27.0-33.0); MEAN CORPUSCULAR HGB CONC 33.5 g/dl (32.0-36.5); MEAN CORPUSCULAR VOLUME 92.3 fl (80.0-96.0); MONO # 0.3 10^3/uL (0.0-0.8); MONO % 5.5 % (2.0-8.0); NEUTROPHILS # 3.7 10^3/uL (1.5-8.5); NEUTROPHILS % 60.7 % (36.0-66.0); PLATELET COUNT, AUTOMATED 197 10^3/uL (150-450); RED BLOOD COUNT 4.04 10^6/uL (4.00-5.40); WHITE BLOOD COUNT 6.2 10^3/uL (4.0-10.0)
[2024-08-15 17:59] LABS: ALBUMIN 4.5 G/DL (3.2-5.2); ALKALINE PHOSPHATASE 85 U/L (35-104); ALT/SGPT 13 U/L (7.0-40); AST/SGOT < 8 U/L (<34); BILIRUBIN,TOTAL 0.5 MG/DL (0.3-1.2); BLOOD UREA NITROGEN 8 MG/DL (9-23); CALCIUM LEVEL 9.4 MG/DL (8.5-10.1); CARBON DIOXIDE LEVEL 26 MMOL/L (20-31); CHLORIDE LEVEL 107 MMOL/L (98-107); CHOLESTEROL LEVEL 236 MG/DL (<200); CHOLESTEROL RISK RATIO 3.18 (<5); CREATININE FOR GFR 0.69 MG/DL (0.55-1.30); GLOMERULAR FILTRATION RATE > 60.0 (>60); GLUCOSE, FASTING 83 MG/DL (60-100); LDL CHOLESTEROL 143.6 MG/DL (<100); MAGNESIUM LEVEL 2.1 MG/DL (1.8-2.4); POTASSIUM SERUM 4.1 MMOL/L (3.5-5.1); SODIUM LEVEL 143 MMOL/L (136-145); THYROID STIMULATING HORMONE 1.408 uIU/ML (0.55-4.78); TOTAL PROTEIN 7.5 G/DL (5.7-8.2); TRIGLYCERIDES LEVEL 92 MG/DL (<150)
[2024-08-15 18:00] LABS: FREE T4 1.22 NG/DL (0.89-1.76)
[2024-08-15 18:15] LABS: HEMOGLOBIN A1c 4.9 % (4.0-6.0)
== END ==
LOC: M SFHCCLAY 13:00
PROVIDERS: ATTEND Nurse Practitioner Family
DX: R55 Syncope and collapse (principal); R00.2 Palpitations; F41.9 Anxiety disorder, unspecified; F31.9 Bipolar disorder, unspecified

== ENCOUNTER → 2024-08-29 | Outpatient (REF) | payer OTHER ==
[2024-08-31 15:07] LABS: HPV APTIMA Not Detected (Not Detected)
== END ==
LOC: M SFHCWAGY 13:17
PROVIDERS: ATTEND Advanced Practice Midwife
DX: Z12.4 Encounter for screening for malignant neoplasm of cervix (principal)

== ENCOUNTER → 2024-08-30 | Outpatient (CLI) | payer OTHER | LOC: M CLY 09:54 | PROVIDERS: ATTEND Nurse Practitioner Family | DX: S89.92XD Unspecified injury of left lower leg, subsequent encounter (principal) ==

== ENCOUNTER → 2025-05-09 | Outpatient (REF) | payer OTHER ==
[~2025-05-09] MED LIST changes: +PROZ10CA11 PO; -PROZ10CA7 PO
[2025-05-09 18:06] LABS: BASO # 0.0 10^3/uL (0.0-0.2); BASO % 0.5 % (0.0-1.0); EOS # 0.0 10^3/uL (0.0-0.5); EOS % 0.6 % (0.0-3.0); LYMPH # 1.8 10^3/uL (1.5-5.0); LYMPH % 29.1 % (24.0-44.0); MONO # 0.4 10^3/uL (0.0-0.8); MONO % 5.8 % (2.0-8.0); NEUTROPHILS # 4.0 10^3/uL (1.5-8.5); NEUTROPHILS % 63.7 % (36.0-66.0); PLATELET COUNT, AUTOMATED 220 10^3/uL (150-450)
[2025-05-09 18:09] LABS: CALCIUM LEVEL 8.1 MG/DL (8.5-10.1); CARBON DIOXIDE LEVEL 29 MMOL/L (20-31); CHLORIDE LEVEL 107 MMOL/L (98-107); CREATININE FOR GFR 0.73 MG/DL (0.55-1.30); GLOMERULAR FILTRATION RATE > 90.0 (>60); POTASSIUM SERUM 4.4 MMOL/L (3.5-5.1); SODIUM LEVEL 140 MMOL/L (136-145)
[2025-05-09 18:14] LABS: FREE T4 1.00 NG/DL (0.89-1.76)
== END ==
LOC: M SFHCCLAY 11:41
PROVIDERS: ATTEND Nurse Practitioner Family
DX: R61 Generalized hyperhidrosis (principal)

== ENCOUNTER → 2025-05-10 | Outpatient (REF) | payer OTHER | LOC: M SFHCCLAY 12:04 | PROVIDERS: ATTEND Nurse Practitioner Family | DX: R19.7 Diarrhea, unspecified (principal) ==

== ENCOUNTER → 2025-06-08 | Outpatient (REF) | payer OTHER ==
[2025-06-08 12:52] LABS: PLATELET COUNT, AUTOMATED 217 10^3/uL (150-450)
== END ==
LOC: M LABDRAWC 12:11
PROVIDERS: ATTEND Obstetrics & Gynecology
DX: N93.9 Abnormal uterine and vaginal bleeding, unspecified (principal)

== ENCOUNTER → 2025-06-25 | Outpatient (CLI) | payer OTHER ==
[2025-06-25 18:46] LABS: APPEARANCE, URINE CLEAR (CLEAR); BACTERIA, URINE AUTO NEGATIVE (NEGATIVE); BILIRUBIN, URINE AUTO NEGATIVE (NEGATIVE); BLOOD, URINE BLOOD NEGATIVE (NEGATIVE); GLUCOSE, URINE (UA) AUTO NEGATIVE (NEGATIVE); KETONE, URINE AUTO NEGATIVE (NEGATIVE); LEUKOCYTE ESTERASE, URINE AUTO NEGATIVE (NEGATIVE); NITRITE, URINE AUTO NEGATIVE (NEGATIVE); PROTEIN, URINE AUTO NEGATIVE (NEGATIVE); RBC, URINE AUTO 0 /HPF (0-3); SPECIFIC GRAVITY URINE AUTO 1.004 (1.002-1.035); SQUAMOUS EPITHELIAL CELL UR AU 1 /HPF (0-6); UROBILINOGEN, URINE AUTO 0.2 mg/dL (0.0-2.0); WBC, URINE AUTO 0 /HPF (0-3)
[2025-06-25 19:15] LABS: ESTRADIOL 109.4 PG/ML; FREE T4 1.27 NG/DL (0.89-1.76); LUTEINIZING HORMONE 4.2 mIU/ML
[2025-06-27 08:42] LABS: DEHYDROEPIANDROSTERONE SULFATE 163 mcg/dL (19-237)
== END ==
LOC: M PLALAB 14:23
PROVIDERS: ATTEND Advanced Practice Midwife
DX: R10.20 Pelvic and perineal pain unspecified side (principal); R61 Generalized hyperhidrosis; N92.1 Excessive and frequent menstruation with irregular cycle